=== PATIENT | female | born 2000 | race Two or more races ===

== ENCOUNTER 2020-09-22 13:51 | Inpatient (IN) | payer MEDICAID ==
[~2020-09-22] VITALS: Ht 170.2 cm; Wt 111.7 kg
[2020-09-22] MEDS ORDERED: ZOLPIDEM TARTRATE 10 MG TABLET PO PRN (16:15)
[2020-09-22] MEDS ORDERED: PNEUMOCOCCAL VACCINE POLYVALENT 0.5 ML VIAL [PPSV23] IM ONE (18:15)
[2020-09-22 19:59] VITALS: BP 134/90
[2020-09-22] MEDS ORDERED: MAG HYDROX/AL HYDROX/SIMETH ES 30 ML SUSPENSION UDCUP PO PRN (22:30)
[2020-09-22] MEDS ORDERED: ACETAMINOPHEN 325 MG TABLET PO PRN (22:30)
[2020-09-22] MEDS ORDERED: BACITRACIN 28 GM OINTMENT TP PRN (22:30)
[2020-09-22] MEDS ORDERED: BENZOCAINE/MENTHOL LOZENGE PO PRN (22:30)
[2020-09-22] MEDS ORDERED: ALBUTEROL SULFATE HFA 90 MCG/PUFF 8 GM INHALER IH PRN (22:30)
[2020-09-22] MEDS ORDERED: PETROLATUM,WHITE 28 GM JELLY TP PRN (22:30)
[2020-09-22] MEDS ORDERED: LOPERAMIDE HCL 2 MG CAPSULE PO PRN (22:30)
[2020-09-22] MEDS ORDERED: IBUPROFEN 600 MG TABLET PO PRN (22:30)
[2020-09-22] MEDS ORDERED: ONDANSETRON HCL 4 MG TABLET PO PRN (22:30)
[2020-09-22] MEDS ORDERED: DOCUSATE SODIUM 100 MG CAPSULE PO PRN (22:30)
[2020-09-22] MEDS ORDERED: OMEPRAZOLE 20 MG CAPSULE PO PRN (22:30)
[2020-09-22] MEDS ORDERED: CloNIDine HCL 0.1 MG TABLET PO PRN (22:30)
[2020-09-22] MEDS ORDERED: MAGNESIUM HYDROXIDE SUSPENSION 30 ML UDCUP PO PRN (22:30)
[2020-09-23 00:18] VITALS: BP 128/61
[2020-09-23 08:15] VITALS: BP 136/79
[2020-09-23 16:31] VITALS: BP 137/68
[2020-09-23] MEDS: LURASIDONE HCL 80 MG TABLET PO SCH (20:49)
[2020-09-24 05:55] VITALS: BP 104/62
[2020-09-24 08:42] VITALS: BP 121/83
[2020-09-24] MEDS: HALOPERIDOL 5 MG TABLET PO PRN (15:33)
[2020-09-24] MEDS: LORazepam 2 MG TABLET PO PRN (15:37)
[2020-09-24 16:20] VITALS: BP 117/77
[2020-09-24] MEDS: LURASIDONE HCL 80 MG TABLET PO SCH (20:35)
[2020-09-25 04:53] VITALS: BP 113/78
[2020-09-25 12:21] VITALS: BP 110/70
[2020-09-25 16:09] VITALS: BP 140/72
[2020-09-25] MEDS: LURASIDONE HCL 80 MG TABLET PO SCH (20:30)
[2020-09-26 03:22] VITALS: BP 144/86
[2020-09-26 08:28] VITALS: BP 140/94
[2020-09-26 16:08] VITALS: BP 123/74
[2020-09-26] MEDS: LURASIDONE HCL 80 MG TABLET PO SCH (20:16)
[2020-09-27 00:30] VITALS: BP 103/66
[2020-09-27 08:11] VITALS: BP 106/85
[2020-09-27 09:07] LABS: BASOPHILS % (AUTO) 0.3 % (0.0-2.0); EOSINOPHILS % (AUTO) 1.5 % (1.0-6.0); HEMATOCRIT 40.3 % (36-46); HEMOGLOBIN 12.8 g/dL (12.0-16.0); LYMPHOCYTES # (AUTO) 2.5 K/uL (1.0-4.8); LYMPHOCYTES % (AUTO) 25.5 % (22.0-44.0); MEAN CORPUSCULAR HEMOGLOBIN 26.1 pg (26.0-34.0); MEAN CORPUSCULAR HGB CONC 31.7 G/dL (31.0-37.0); MEAN CORPUSCULAR VOLUME 82 fL (80-100); MONOCYTES # (AUTO) 0.6 K/uL (0.1-1.0); MONOCYTES % (AUTO) 6.2 % (2.0-9.0); NEUTROPHILS # (AUTO) 6.5 K/uL (1.8-7.7); NEUTROPHILS % (AUTO) 66.5 % (40.0-70.0); PLATELET COUNT (AUTO) 363 K/uL (150-450); RED CELL DISTRIBUTION WIDTH 14.6 % (11.5-14.5)
[2020-09-27 09:22] LABS: COVID AG,FIA SOURCE NASOPHARYNGEAL
[2020-09-27 09:31] LABS: HEMOGLOBIN A1C 6.4 % (3.8-5.6)
[2020-09-27 09:36] LABS: ALANINE AMINOTRANSFERASE 46 U/L (12-78); ALBUMIN 3.1 g/dL (3.4-5.0); ALKALINE PHOSPHATASE 127 U/L (46-116); ANION GAP 8 mmol/L (8-16); ASPARTATE AMINOTRANSFERASE 28 U/L (15-37); BILIRUBIN,TOTAL 0.2 mg/dL (0.1-1.0); CALCIUM, TOTAL 8.7 mg/dL (8.8-10.5); CARBON DIOXIDE 27 mmol/L (22-29); CHLORIDE 107 mmol/L (98-107); CHOL/HDL RATIO 2.7 (3.9-5.7); CHOLESTEROL 110 mg/dL (131-200); CREATININE 0.67 mg/dL (0.60-1.30); GLOMERULAR FILTR. RATE CALC > 60 mL/min (>60); GLUCOSE,RANDOM 106 mg/dL (70-110); HCG,QUANTITATIVE 1 mIU/mL (0-6); HDL CHOLESTEROL 41 mg/dL (40-60); LDL CHOL (CALC.) 59 mg/dL (0-130); POTASSIUM 4.9 mmol/L (3.5-5.1); SODIUM SERUM 142 mmol/L (136-145); THYROID STIMULATING HORMONE 1.54 uIU/mL (0.36-3.74); TRIGLYCERIDES 49 mg/dL (15-150); UREA NITROGEN, BLOOD 11 mg/dL (7-18)
[2020-09-27 16:21] VITALS: BP 112/89
[2020-09-27] MEDS: LURASIDONE HCL 80 MG TABLET PO SCH (20:31)
[2020-09-28 05:57] VITALS: BP 121/80
[2020-09-28 08:43] VITALS: BP 111/80
[2020-09-28 16:23] VITALS: BP 135/90
[2020-09-28] MEDS: HALOPERIDOL 5 MG TABLET PO PRN (16:35)
[2020-09-28] MEDS: LURASIDONE HCL 80 MG TABLET PO SCH (20:08)
[2020-09-28] MEDS ORDERED: GLUCAGON,HUMAN RECOMBINANT 1 MG VIAL IM PRN (20:30)
[2020-09-29 00:15] VITALS: BP 105/62
[2020-09-29 06:49] LABS: GLUCOMETER DEV NAME(LOC) BV2S.; GLUCOSE,POINT OF CARE 94 MG/DL (70-110)
[2020-09-29 08:04] LABS: AMPHET/METH SCREEN,URINE NEGATIVE (NEGATIVE); BARBITURATE SCREEN, URINE NEGATIVE (NEGATIVE); BENZODIAZEPINES SCREEN,URINE NEGATIVE (NEGATIVE); CANNABINOID SCREEN,URINE NEGATIVE (NEGATIVE); COCAINE SCREEN,URINE NEGATIVE (NEGATIVE); METHADONE SCREEN, URINE NEGATIVE (NEGATIVE); OPIATE SCREEN,URINE NEGATIVE (NEGATIVE)
[2020-09-29 08:09] LABS: APPEARANCE,URINE CLOUDY (CLEAR); BILIRUBIN,URINE NEGATIVE (NEGATIVE); GLUCOSE, URINE (UA) NEGATIVE (NEGATIVE); KETONES,URINE NEGATIVE (NEGATIVE); LEUKOCYTE ESTERASE ,URINE MODERATE (NEGATIVE); NITRATE,URINE NEGATIVE (NEGATIVE); OCCULT BLOOD,URINE TRACE (NEGATIVE); PROTEIN,URINE NEGATIVE (NEGATIVE); UROBILINOGEN,URINE 0.2 mg/dL (<=1.0)
[2020-09-29 08:10] LABS: PHENCYCLIDINE SCREEN,URINE NEGATIVE (NEGATIVE)
[2020-09-29 08:19] VITALS: BP 106/60
[2020-09-29 09:58] LABS: BACTERIA,URINE None Seen /HPF (None Seen); CALCIUM OXALATE CRYSTALS,UR Few /LPF (None Seen); RBC,URINE 0-2 /HPF (0-2); SQUAMOUS EPITHELIAL CELL,UR Moderate /LPF (None Seen)
[2020-09-29 16:18] LABS: GLUCOMETER DEV NAME(LOC) BV2S.; GLUCOSE,POINT OF CARE 109 MG/DL (70-110)
[2020-09-29 16:46] VITALS: BP 128/71
[2020-09-29] MEDS: LURASIDONE HCL 80 MG TABLET PO SCH (20:37)
[2020-09-30 00:35] VITALS: BP 115/62
[2020-09-30 06:34] LABS: GLUCOMETER DEV NAME(LOC) BV2S.; GLUCOSE,POINT OF CARE 101 MG/DL (70-110)
[2020-09-30 08:12] VITALS: BP 135/56
[2020-09-30 16:27] VITALS: BP 129/78
[2020-09-30 16:39] LABS: GLUCOMETER DEV NAME(LOC) BV2S.; GLUCOSE,POINT OF CARE 96 MG/DL (70-110)
[2020-09-30] MEDS: LURASIDONE HCL 80 MG TABLET PO SCH (20:22)
[2020-10-01 01:03] VITALS: BP 118/56
[2020-10-01 06:27] LABS: GLUCOMETER DEV NAME(LOC) BV2S.; GLUCOSE,POINT OF CARE 127 MG/DL (70-110)
[2020-10-01 08:15] VITALS: BP 114/37
[2020-10-01 09:11] VITALS: BP 127/71
[2020-10-01 16:26] VITALS: BP 135/71
[2020-10-01 16:31] LABS: GLUCOMETER DEV NAME(LOC) BV2S.; GLUCOSE,POINT OF CARE 105 MG/DL (70-110)
[2020-10-01] MEDS: LURASIDONE HCL 80 MG TABLET PO SCH (20:21)
[2020-10-02 00:45] VITALS: BP 128/73
[2020-10-02 06:38] LABS: GLUCOMETER DEV NAME(LOC) BV2S.; GLUCOSE,POINT OF CARE 96 MG/DL (70-110)
[2020-10-02 08:18] VITALS: BP 150/61
[2020-10-02 16:33] VITALS: BP 149/83
[2020-10-02 16:58] LABS: GLUCOMETER DEV NAME(LOC) BV2S.; GLUCOSE,POINT OF CARE 106 MG/DL (70-110)
[2020-10-02 17:04] VITALS: BP 108/59
[2020-10-02] MEDS: LURASIDONE HCL 60 MG TABLET PO SCH (20:32)
[2020-10-03 05:11] VITALS: BP 137/66
[2020-10-03 06:49] LABS: GLUCOMETER DEV NAME(LOC) BV2S.; GLUCOSE,POINT OF CARE 125 MG/DL (70-110)
[2020-10-03 08:41] VITALS: BP 129/69
[2020-10-03 16:16] VITALS: BP 125/68
[2020-10-03] MEDS: LURASIDONE HCL 60 MG TABLET PO SCH (20:10)
[2020-10-04 02:57] VITALS: BP 136/92
[2020-10-04] MEDS: LORazepam 2 MG TABLET PO PRN (03:03)
[2020-10-04 06:30] LABS: GLUCOMETER DEV NAME(LOC) BV2S.; GLUCOSE,POINT OF CARE 100 MG/DL (70-110)
[2020-10-04 13:28] LABS: COVID AG,FIA SOURCE NASOPHARYNGEAL
[2020-10-04] MEDS ORDERED: LURA60TA PO (14:32)
[2020-10-04 16:17] VITALS: BP 136/77
== END 2020-10-04 16:00 | disposition home or self-care (01) | DRG 750 ==
LOC: B2S 18:38
PROVIDERS: ADMIT Psychiatry & Neurology Psychiatry; ATTEND Psychiatry & Neurology Psychiatry
DX: F20.0 Paranoid schizophrenia (principal); K21.9 Gastro-esophageal reflux disease without esophagitis; F41.9 Anxiety disorder, unspecified; G47.00 Insomnia, unspecified; E66.9 Obesity, unspecified; Z20.822 Contact with and (suspected) exposure to COVID-19; Z68.38 Body mass index [BMI] 38.0-38.9, adult; Z28.21 Immunization not carried out because of patient refusal
CPT/HCPCS: 80307; 83036; 84436; 84439; 84443; 86592; 87426; 90732; A9575

== ENCOUNTER 2020-09-22 15:19 | Emergency (ER) | payer MEDICAID, OTHER ==
[~2020-09-22] VITALS: Ht 167.6 cm; Wt 86.4 kg
[2020-09-22 15:28] VITALS: BP 131/75
[2020-09-22 16:02] LABS: COVID AG,FIA SOURCE NASOPHARYNGEAL
== END 2020-09-22 17:10 | disposition home or self-care (01) ==
LOC: EMS 15:19
DX: F25.9 Schizoaffective disorder, unspecified (principal); Z20.822 Contact with and (suspected) exposure to COVID-19
CPT/HCPCS: 87426